=== PATIENT | male | born 1950 | race Caucasian/White ===

== ENCOUNTER 2017-01-16 12:06 | Emergency (ER) | payer MEDICARE ==
[2017-01-16 12:29] VITALS: TEMP 98
--- NOTE | 2017-01-16 13:37 | ED ---
General Adult HPI - General Chief complaint: Anxiety Stated complaint: Anxiety Time Seen by Provider: 01/16/17 13:23 Source: patient, RN notes reviewed Mode of arrival: ambulatory Limitations: no limitations - History of Present Illness Initial comments: Patient is a pleasant 66-year-old male presenting to the emergency department for anxiety. Patient just arrived from [place] to visit his brother. Brother is undergoing heart surgery today. Patient also recently lost his nephew. [place] marijuana. Patient states he feels high from this. Patient felt his heart racing. No chest pain or shortness of breath. Symptoms have now resolved. Patient does admit to having increased stress otherwise. No suicidal thoughts. Patient is currently symptom-free and request discharge. Patient does have a history of atrial fibrillation and is currently taking Eliquis for this. - Related Data Allergies Allergy/AdvReac Type Severity Reaction Status Date / Time Iodinated Contrast- Oral and Allergy Swelling Verified 01/16/17 12:29 IV Dye Review of Systems ROS Statement: Those systems with pertinent positive or pertinent negative responses have been documented in the HPI. ROS Other: All systems not noted in ROS Statement are negative. Constitutional: Denies: fever Eyes: Denies: eye pain ENT: Denies: ear pain Respiratory: Denies: cough Cardiovascular: Reports: palpitations. Denies: chest pain Endocrine: Denies: fatigue Gastrointestinal: Denies: abdominal pain Genitourinary: Denies: urgency Musculoskeletal: Denies: back pain Skin: Denies: rash Neurological: Denies: headache Psychiatric: Reports: anxiety Past Medical History Past Medical History: Atrial Fibrillation, Coronary Artery Disease (CAD), COPD, CVA/TIA, Deep Vein Thrombosis (DVT), Hyperlipidemia, Hypertension, Myocardial Infarction (NV) Additional Past Medical History / Comment(s): recent throat cancer, left lung removed History of Any Multi-Drug Resistant Organisms: None Reported Additional Past Surgical History / Comment(s): DVT removal left leg and cadaver vein to left leg, left lung removed, cardiac ablation Past Psychological History: No Psychological Hx Reported Smoking Status: Current every day smoker Past Alcohol Use History: Occasional Past Drug Use History: Marijuana General Exam Limitations: no limitations General appearance: alert, in no apparent distress Head exam: Present: atraumatic Eye exam: Present: normal appearance, PERRL ENT exam: Present: normal oropharynx Neck exam: Present: normal inspection Respiratory exam: Present: normal lung sounds bilaterally Cardiovascular Exam: Present: regular rate, normal rhythm Expanded Peripheral pulses: 2+: Radial (R), Radial (L), Posterior Tibialis (R), Posterior Tibialis (L) GI/Abdominal exam: Present: soft. Absent: tenderness Extremities exam: Present: normal inspection. Absent: pedal edema, calf tenderness Neurological exam: Present: alert Psychiatric exam: Present: normal affect, normal mood Skin exam: Present: normal color Course Vital Signs 01/16/17 12:18 Temperature 98 F Pulse Rate 137 H Respiratory 18 Rate Blood Pressure 194/127 O2 Sat by Pulse 96 Oximetry EKG Findings - EKG Comments: EKG Findings:: Sinus rhythm at 85. For screening AV block with a DE of 212. Premature atrial complexes are present. QRS 70. QT 386. QTc 459. Normal axis. LVH. No acute ST change. Medical Decision Making - Medical Decision Making Patient is made aware of possible risk of pulmonary embolism. Patient is currently symptom-free with normal heart rate. Patient is currently on eliquis making this risk a very low. does not feel he needs further evaluation for this and does request discharge. Disposition Clinical Impression: Acute anxiety Disposition: HOME SELF-CARE Condition: Stable Instructions: Generalized Anxiety Disorder (ED) Additional Instructions: Please follow-up with primary care physician in the next day or 2 for recheck. Return for increased heart rate, chest pain, difficulty breathing, worsening symptoms or other concerns. Referrals: Taiwo Jorge MD [STAFF PHYSICIAN] - 1-2 days Giovanny Yañez MD [STAFF PHYSICIAN] - 1-2 days Time of Disposition: 13:36
[2017-01-16 14:53] VITALS: BP 180/78; PULSE 84; RESP 16
== END 2017-01-16 14:54 | disposition home or self-care (01) ==
LOC: EC 12:06
DX: F41.9 Anxiety disorder, unspecified (principal); F17.200 Nicotine dependence, unspecified, uncomplicated; Z86.73 Personal history of transient ischemic attack (TIA), and cerebral infarction without residual deficits; Z86.718 Personal history of other venous thrombosis and embolism; Z91.041 Radiographic dye allergy status
CPT/HCPCS: 93005; 99283